=== PATIENT | male | born 1965 | race Caucasian/White ===

== ENCOUNTER → 2016-12-07 | Outpatient (CLI) | payer BC ==
[~2016-12-07] MED LIST: AMLO1TAB20 PO; ASPI81TA44 PO; ATOR40TA59 PO; BYSTOLIC20 MG PO; CHOL20004 PO; FISH1CAP PO; MULT-245 PO; PHEN37.5 PO; SAXA1TBM2 PO
--- NOTE | 2016-12-07 16:52 | KCIC ---
PROCEDURE Lumbar spine MRI without contrast. HISTORY Spinal stenosis. TECHNIQUE Multiplanar and multi sequence magnetic resonance imaging of the lumbar spine was performed without contrast. COMPARISON None. FINDINGS There is grade 1 anterolisthesis of L3 on L4, measuring 3 mm. There is degenerative endplate remodeling with disc desiccation predominately at L4-L5 and L5-S1. No suspicious osseous lesion is seen. There are few small hemangiomas. There is congenital shortening the pedicles resulting in narrowing of the central canal at all lumbar levels. This superimposed on epidural lipomatosis, resulting in effacement of the thecal sac. This is described in detail below. At L1-L2, there is congenital narrowing of the central canal and epidural lipomatosis. There is mild facet arthropathy. There is mild narrowing of the thecal sac. At L2-L3, there is a disc bulge and endplate remodeling. There is congenital narrowing of the central canal and epidural lipomatosis. There is mild facet arthropathy. There is mild to moderate narrowing of the thecal sac. At L3-L4, there is a disc bulge and endplate remodeling. There is congenital narrowing of the central canal and epidural lipomatosis. There is moderate to severe facet arthropathy. There is hypertrophy of the ligamentum flavum. There is grade 1 anterolisthesis. There is moderate to severe narrowing of the thecal sac. At L4-L5, there is a broad-based posterior central disc protrusion superimposed on a disc bulge and endplate osteophytosis. There is congenital narrowing of the central canal and epidural lipomatosis. There is moderate facet arthropathy. There is moderate narrowing of the thecal sac. At L5-S1, there is a broad-based left paracentral to extra foraminal disc protrusion with slight superior foraminal extrusion superimposed on a disc bulge and endplate osteophytosis. There is mild facet arthropathy. There is mild right and moderate left foraminal stenosis with abutment of the exiting left greater than right L5 nerve roots. There is effacement of the left lateral recess and deviation of the traversing left S1 nerve root without significant central canal stenosis. IMPRESSION 1. Multilevel degenerative change throughout the lumbar spine, described in detail above. The combination of degenerative changes and congenital narrowing of the central canal and epidural lipomatosis results in significant narrowing of the thecal sac and foraminal stenosis at the aforementioned levels. 2. Grade 1 anterolisthesis of L3 on L4. Electronically signed by: Mary Ross (Dec 07, 2016 16:50:56)
== END | disposition home or self-care (01) ==
LOC: KCIC MRI 15:56
PROVIDERS: ATTEND Family Medicine
DX: M47.896 Other spondylosis, lumbar region (principal); E88.2 Lipomatosis, not elsewhere classified
CPT/HCPCS: 72148

== ENCOUNTER → 2017-03-24 | Outpatient (CLI) | payer BC ==
[~2017-03-24] MED LIST changes: -CHOL20004 PO; +CHOL200074 PO
--- NOTE | 2017-03-24 14:52 | KCIC ---
EXAM: Lumbar spine, flexion and extension. HISTORY: Pain. COMPARISON: MRI dated 12/07/2016. FINDINGS: Flexion and extension views of the lumbar spine are obtained. There is grade 1 anterolisthesis of L3 on L4 which measures 3 mm during extension and 4 mm with flexion. No additional listhesis is seen. No fracture is seen. There is degenerative endplate remodeling with anterior predominant osteophytosis at the thoracic and lumbar levels. There is facet arthropathy predominantly at the lower lumbar levels. IMPRESSION: 1. Multilevel degenerative change throughout the lumbar spine, predominantly at the lower lumbar levels. 2. Grade 1 anterolisthesis of L3 on L4 which minimally changes between flexion and extension. Electronically signed by: Mary Ross MD (03/24/2017 2:50 PM) [facility]-KC[facility]
== END | disposition home or self-care (01) ==
LOC: KCIC 14:18
PROVIDERS: ATTEND Neurological Surgery
DX: M43.16 Spondylolisthesis, lumbar region (principal); M48.06 Spinal stenosis, lumbar region
CPT/HCPCS: 72100

== ENCOUNTER → 2017-04-10 | Outpatient (CLI) | payer BC ==
[~2017-04-10] MED LIST changes: +CANA300T PO; +CLON0.2T PO; +GABA-586 PO; +HYDR-2762 PO; +LIRA0.6P2 SQ; +METF-620 PO
[2017-04-10 15:50] LABS: BASO # 0.1 x10^3/uL (0.0-0.2); BASO % 1 % (0-3); EOS % 3 % (0-3); HEMATOCRIT 41.9 % (39.0-53.0); LYMPH # 1.9 x10^3/uL (1.0-4.8); LYMPH % 27 % (24-48); MEAN CORPUSCULAR HEMOGLOBIN 30 pg (25-35); MEAN CORPUSCULAR HGB CONC 33 g/dL (31-37); MEAN CORPUSCULAR VOLUME 91 fL (79-100); MONO % 10 % (0-9); NEUT % 59 % (31-73); PLATELET COUNT 231 x10^3/uL (140-400); RED BLOOD COUNT 4.62 x10^6/uL (4.30-5.70); RED CELL DISTRIBUTION WIDTH 13.6 % (11.5-14.5); WHITE BLOOD COUNT 7.1 x10^3/uL (4.0-11.0)
--- NOTE | 2017-04-10 15:51 | EKG ---
[facility] [address] [place] [address] Test Date: 2017-04-10 Test Time: 15:49:32 Pat Name: NASIMA SHELDON Department: Room: Gender: M Brick Sorter: VERONICA : 1965 Requested By: PAIGE BEATTY Order Number: [id number] Reading MD: Lawrence Durand Measurements Intervals [place] Rate: 74 P: 159 ID: 144 QRS: 166 QRSD: 96 T: 158 QT: 378 QTc: 425 Interpretive Statements SINUS RHYTHM LIMB LEAD MISPLACEMENT Electronically Signed On 04-11-2017 7:09:52 CDT by Lawrence Durand
== END | disposition home or self-care (01) ==
LOC: SURGPAT 13:52
PROVIDERS: ATTEND Neurological Surgery
DX: I10 Essential (primary) hypertension (principal); M54.16 Radiculopathy, lumbar region
CPT/HCPCS: 36415; 85025; 85730; 87641; 93005

== ENCOUNTER 2017-04-19 07:00 | Observation (INO) | payer BC ==
[~2017-04-19] VITALS: Ht 190.5 cm; Wt 172.4 kg
[2017-04-19] VITALS (9 sets, daily range): BP systolic 97–140; BP diastolic 46–91
[~2017-04-19 07:00] MED LIST changes: +BACITRACIN 50,000 UNIT in IV NORMAL SALINE 1000ML BAG 1,000 ML IRR ONE; +BUPIVACAINE MPF 0.5% 30 ML VIAL. ONE; +GELATIN SPONGE SIZE 100. ONE; +HYDROmorphone 2 MG/ML VIAL IV PRN; +IV RINGERS,LACTATED 1000ML 1,000 ML IV SCH; +LIDOCAINE 1% 1 ML SYRINGE. ID PRN; +LIDOCAINE 1%/EPI 1:100,000 20 ML VIAL. ONE; +MORPHINE SULFATE 2 MG/ML DISP.SYRIN. IV PRN; +ONDANSETRON PF 4 MG/2 ML VIAL. IV PRN; +PROCHLORPERAZINE 10 MG/2 ML VIAL. IV PRN; +THROMBIN TOPICAL 20,000 UNIT SPRAY.SYRN KIT TP ONE; +fentaNYL PF VIAL 100 MCG/2 ML VIAL IV PRN
[2017-04-19] MEDS ORDERED: MINERAL OIL/PETROLATUM,WHITE OPHTH OINT 3.5GM TUBE. ONE (08:08)
[2017-04-19] MEDS ORDERED: DEXAMETHASONE SOD PHOS 20 MG/5 ML VIAL. ONE (08:08)
[2017-04-19] MEDS ORDERED: REMIFENTANIL 2 MG VIAL. IV ONE (08:08)
[2017-04-19] MEDS ORDERED: ONDANSETRON PF 4 MG/2 ML VIAL. ONE (08:08)
[2017-04-19] MEDS ORDERED: SUCCINYLCHOLINE 200 MG/10 ML VIAL. ONE (08:08)
[2017-04-19] MEDS ORDERED: fentaNYL PF VIAL 100 MCG/2 ML VIAL ONE (08:08)
[2017-04-19] MEDS ORDERED: PROPOFOL 20 ML IV ONE (08:08)
[2017-04-19] MEDS ORDERED: PROPOFOL 50 ML IV ONE ×2 (08:08→10:26)
[2017-04-19] MEDS ORDERED: DESFLURANE > 120 MINUTES IH ONE (08:08)
[2017-04-19] MEDS ORDERED: LIDOCAINE 2% PF Vial for OR 5 ML VIAL. ONE (08:08)
[2017-04-19] MEDS ORDERED: 0.9 % SODIUM CHLORIDE 50 ML VIAL. IJ ONE (08:08)
[2017-04-19] MEDS ORDERED: MIDAZOLAM HCL/PF 2 MG/2 ML VIAL. ONE (08:08)
[2017-04-19] MEDS ORDERED: PHENYLEPHRINE in 0.9% NACL PF 1 MG/10 ML DISP.SYRIN. IV ONE (10:26)
[2017-04-19] MEDS ORDERED: ePHEDrine PF IN SALINE 50 MG/5 ML DISP.SYRIN IV ONE (10:39)
[2017-04-19] MEDS ORDERED: PHENYLEPHRINE 10 MG/ML VIAL. ONE (10:51)
[2017-04-19] MEDS ORDERED: REMIFENTANIL 1 MG VIAL. IV ONE (12:17)
--- NOTE | 2017-04-19 13:26 | PDOC ---
BRIEF OPERATIVE NOTE Date: Apr 19, 2017 Pre-Op Diagnosis lumbar stenosis, lumbar radiculopathy Post-Op Diagnosis same Procedure Performed bilateral laminectomy L3-4 and L4-5 Surgeon Linda Software Recruiter none Anesthesia Type: General Blood Loss 100mL Specimens Obtained decompression Findings prominent stenosis L3-4 and L4-5, neuromonitoring potentials remained at least baseline with some possible reported improvement at the completion of the procedure Complications none apparent PAIGE BEATTY MD Apr 19, 2017 13:26
[2017-04-19] MEDS ORDERED: diphenhydrAMINE 50 MG/ML VIAL IV PRN (13:30)
[2017-04-19] MEDS ORDERED: NALOXONE 0.4 MG/ML VIAL. IV PRN (13:30)
[2017-04-19] MEDS ORDERED: MAG HYDROX/ALUMINUM HYD/SIMETH 30 ML ORAL.SUSP PO PRN (13:30)
[2017-04-19] MEDS ORDERED: ACETAMINOPHEN 325 MG TABLET. PO PRN (13:30)
[2017-04-19] MEDS ORDERED: CALCIUM CARBONATE 500 MG TAB.CHEW PO PRN (13:30)
[2017-04-19] MEDS ORDERED: MAGNESIUM HYDROXIDE 2,400 MG/30 ML ORAL.SUSP. PO PRN (13:30)
[2017-04-19] MEDS ORDERED: ZOLPIDEM 5 MG TABLET. PO PRN (13:30)
[2017-04-19] MEDS ORDERED: oxyCODONE/APAP 5/325 1 TAB TABLET PO PRN (13:30)
[2017-04-19] MEDS ORDERED: 0.9 % SODIUM CHLORIDE 10 ML DISP.SYRIN. IV PRN (13:30)
[2017-04-19] MEDS ORDERED: diphenhydrAMINE HCL 25 MG CAPSULE PO PRN (13:30)
[2017-04-19] MEDS ORDERED: ONDANSETRON PF 4 MG/2 ML VIAL. IV PRN (13:30)
[2017-04-19] MEDS: fentaNYL PF VIAL 100 MCG/2 ML VIAL IV PRN ×3 (13:41→14:00)
[2017-04-19] MEDS ORDERED: fentaNYL PF VIAL 100 MCG/2 ML VIAL IV PRN ×2 (13:45)
[2017-04-19] MEDS: MORPHINE SULFATE 2 MG/ML DISP.SYRIN. IV PRN ×2 (13:55→14:06)
[2017-04-19] MEDS ORDERED: MORPHINE SULFATE 4 MG/ML DISP.SYRIN. IV PRN (14:00)
--- NOTE | 2017-04-19 14:12 | OP ---
DATE OF SURGERY: 04/19/2017 SURGEON: Samuel Beatty MD WELLNESS ASSISTANT: None. PREOPERATIVE DIAGNOSES: Lumbar stenosis, lumbar radiculopathy with epidural lipomatosis, and lumbar spondylosis. POSTOPERATIVE DIAGNOSES: Lumbar stenosis, lumbar radiculopathy with epidural lipomatosis, and lumbar spondylosis. PROCEDURE: Bilateral laminectomy at lumbar 3-4 and lumbar 4-5 with intraoperative use of neuromonitoring and intraoperative use of microscope. ANESTHESIA: General. COMPLICATIONS: None intra-procedurally. INDICATIONS FOR THE PROCEDURE: The patient is a 52-year-old gentleman with bilateral lower extremity pain with prominent stenosis due to degenerative changes as well as epidural lipomatosis predominantly at lumbar 3-4 and lumbar 4-5. He has been refractory to multiple nonsurgical treatments. Please refer to the patient's chart for additional details. DESCRIPTION OF PROCEDURE: After informed consent was obtained, the patient was brought into the operating room. He was placed under general anesthesia. He was placed in prone position on the Ricky frame. All pressure points were checked and padded appropriately. The lumbar region was prepped and draped in the usual sterile fashion. Fluoroscopy was utilized to localize an appropriate incision location and a vertical incision centered over the region of lumbar 3, 4, and 5 was made with a 10 blade scalpel. Monopolar electrocautery was utilized to dissect the avascular midline to the spinous processes of lumbar 3, 4 and 5 and bilaterally across the lamina at this location. Level was verified with fluoroscopy prior to the initiation of decompressions. Bilateral laminectomies were performed from the superior aspect of lumbar 5, through the entirety of lumbar 4 and the inferior aspect of lumbar 3 bilaterally across the regions of the most significant stenosis which were in the regions of disk spaces. Laminectomy was performed with a Leksell as well as a pneumatic drill and a Kerrison rongeur. The bone was gently removed with Kerrison rongeur from the underlying ligament and the ligament was subsequently gently removed from thecal sac with a Chicot and a Kerrison rongeur. Significant lipomatosis was noted predominantly at the more inferior aspect of the laminectomy and degenerative changes were significantly more prominent factor in the more cephalad region of stenosis. Significant hypertrophied ligament was removed from lateral recesses at these locations with a Kerrison rongeur as well. Upon completion of decompression, the neural elements were noted to be very well decompressed. This was verified with direct visualization as well as gentle palpation with a Chicot and a Crane ball probe. It was also noted that neuromonitoring potentials were at least baseline with some possible reported improvement after the decompression. Upon completion of the laminectomy/decompression, attention was turned to closure. Pristine hemostasis was achieved with FloSeal, cottonoids and some use of bipolar electrocautery. Wound was generously irrigated with antibiotic irrigation prior to final closure. The muscles and fascia were then reapproximated with 0 Vicryl in a simple interrupted fashion. The subcutaneous tissues were reapproximated with 2-0 Vicryl in an interrupted inverted fashion, and the skin was reapproximated with 4-0 Vicryl in a running ____ recovery in stable condition. There were no intra-procedural complications apparent. SAMUEL BEATTY MD DR: NUPUR/kasia JOB#: [id number] / [id number]
[2017-04-19] MEDS: amLODIPine BESYLATE 10 MG TABLET PO SCH (15:00)
[2017-04-19] MEDS: LOSARTAN POTASSIUM 50 MG TABLET. PO SCH (15:00)
[2017-04-19] MEDS: hydroCHLOROthiazide 25 MG TABLET PO SCH (15:00)
[2017-04-19] MEDS: CALCIUM CARB/VIT D3 500/200 TABLET. PO SCH (16:37)
[2017-04-19] MEDS: GABAPENTIN 300 MG CAPSULE. PO SCH ×2 (16:37→21:14)
[2017-04-19] MEDS: FERROUS SULFATE 325 MG TABLET. PO SCH (16:38)
[2017-04-19] MEDS: METHOCARBAMOL 750 MG TABLET PO SCH ×2 (16:38→21:14)
[2017-04-19] MEDS: METOPROLOL TART IMMED RELEASE 50 MG TABLET. PO SCH (21:00)
[2017-04-19] MEDS: SENNOSIDES/DOCUSATE 8.6/50MG TABLET. PO SCH (21:00)
[2017-04-19] MEDS ORDERED: ATORVASTATIN CALCIUM 40 MG TABLET. PO SCH (21:00)
[2017-04-19] MEDS: DOCUSATE SODIUM 100 MG CAPSULE. PO SCH (21:14)
[2017-04-19] MEDS: cloNIDine HCL 0.2 MG TABLET PO SCH (23:22)
[2017-04-19] MEDS: oxyCODONE/APAP 5/325 1 TAB TABLET PO PRN (23:23)
[2017-04-20 03:25] VITALS: BP 117/73
[2017-04-20] MEDS: oxyCODONE/APAP 5/325 1 TAB TABLET PO PRN ×2 (05:17→09:10)
[2017-04-20 06:30] VITALS: BP 118/72
[2017-04-20] MEDS: FERROUS SULFATE 325 MG TABLET. PO SCH (07:58)
[2017-04-20] MEDS: CALCIUM CARB/VIT D3 500/200 TABLET. PO SCH (07:58)
[2017-04-20] MEDS ORDERED: NON FORMULARY ITEM (Canagliflozin (Invokana) 300 MG) PO SCH (08:00)
[2017-04-20] MEDS: DOCUSATE SODIUM 100 MG CAPSULE. PO SCH (08:47)
[2017-04-20] MEDS: hydroCHLOROthiazide 25 MG TABLET PO SCH (08:47)
[2017-04-20] MEDS: cloNIDine HCL 0.2 MG TABLET PO SCH (08:47)
[2017-04-20] MEDS: LOSARTAN POTASSIUM 50 MG TABLET. PO SCH (08:47)
[2017-04-20 08:48] VITALS: BP 118/72
[2017-04-20] MEDS: SENNOSIDES/DOCUSATE 8.6/50MG TABLET. PO SCH (08:48)
[2017-04-20] MEDS: METOPROLOL TART IMMED RELEASE 50 MG TABLET. PO SCH (08:48)
[2017-04-20] MEDS: GABAPENTIN 300 MG CAPSULE. PO SCH (08:48)
[2017-04-20] MEDS: amLODIPine BESYLATE 10 MG TABLET PO SCH (08:48)
[2017-04-20] MEDS: METHOCARBAMOL 750 MG TABLET PO SCH (08:48)
[2017-04-20] MEDS ORDERED: NON FORMULARY ITEM (Liraglutide (Victoza 3-Pak) 1.8 MG) SQ SCH (09:00)
[2017-04-20] MEDS ORDERED: NON FORMULARY ITEM (Phentermine Hcl 1 TAB) PO SCH (09:00)
[2017-04-20] MEDS ORDERED: MULTIVITAMIN with MINERAL TABLET. PO SCH (09:00)
[2017-04-20] MEDS ORDERED: SENN-37 PO (09:17)
[2017-04-20] MEDS ORDERED: OXYC-323 PO (09:17)
[2017-04-20] MEDS ORDERED: METH-38 PO (09:18)
--- NOTE | 2017-04-20 11:17 | PDOC ---
SUBJECTIVE Subjective Late entry. Pt seen and examined 0830 on 04/20/17. Denies acute complaints. Some incisional pain controlled with present regimen. Reports improvement of pre-operative leg symptoms. Has ambulated without significant problem. OBJECTIVE Vital Signs Vital Signs Date Time Temp Pulse Resp B/P (MAP) Pulse Ox O2 Delivery O2 Flow Rate FiO2 04/20/17 09:10 Room Air 04/20/17 08:48 74 118/72 04/20/17 08:48 74 118/72 04/20/17 08:47 74 118/72 04/20/17 08:47 74 118/72 04/20/17 06:30 98.2 74 20 118/72 (87) 100 Room Air 98.2 04/20/17 06:20 20 Room Air 04/20/17 05:17 20 Room Air 04/20/17 03:25 97.9 77 20 117/73 (88) 97 Room Air 97.9 04/19/17 23:29 98.2 87 20 140/80 (100) 98 Room Air 98.2 04/19/17 23:23 20 04/19/17 23:22 87 140/80 04/19/17 21:53 88 124/74 (91) 04/19/17 17:55 98.8 91 18 97/46 (63) 96 98.8 04/19/17 17:00 91 128/91 (103) Room Air 04/19/17 16:00 91 130/76 (94) Room Air 04/19/17 15:15 89 135/70 (91) 04/19/17 15:12 Room Air 04/19/17 15:10 90 117/84 (95) 95 Room Air 04/19/17 15:00 93 126/70 (88) 95 04/19/17 14:45 97.7 90 114/66 (82) 92 Room Air 97.7 04/19/17 14:22 98.3 91 20 138/79 95 Room Air 98.3 04/19/17 14:07 89 18 129/82 94 Room Air 04/19/17 14:06 20 95 Room Air 04/19/17 14:00 20 98 Room Air 04/19/17 13:55 20 95 Room Air 04/19/17 13:52 90 18 120/79 96 Room Air 04/19/17 13:41 20 100 Simple Mask 10.0 9/6/17 13:37 80 20 114/70 99 Simple Mask 10.0 04/19/17 13:35 20 100 Simple Mask 10.0 04/19/17 13:22 99.3 93 18 148/77 98 Simple Mask 10 99.3 04/19/17 13:22 Mask 10 PHYSICAL EXAM Physical Exam AAOx4, NAD, HSU 5/5, sensation intact LT, incision with minimal sanguinous drainage at inferior aspect, flat and dry otherwise ASSESSMENT/PLAN Assessment/Plan POD 1 lumbar laminectomy -appears to be recovering well thus far -PT evaluation pending -anticipate d/c home today Problems: COMMENT Lab Laboratory Tests Test 04/19/17 13:39 Glucose (Fingerstick) 132 mg/dL (70-99) PAIGE BEATTY MD Apr 20, 2017 11:17
--- NOTE | 2017-04-22 00:02 | PATHOLOGY ---
PATHOLOGY REPORT * * * * * * * * FINAL DIAGNOSIS: "Lumbar decompression", removal: - Fragments of fibrocartilage with degenerative changes. - Fragments of unremarkable bone. (SKM/db; 04/21/2017) REPORT ELECTRONICALLY SIGNED BY: Christine Watson M.D. DATE/TIME: 04/21/2017 15:24 * * * * * * * * GROSS PATHOLOGY: Received in formalin labeled "Bartolo Childers Jr., lumbar decompression," are several pieces of glistening, fibrous tissue admixed with pink-springer soft tissue and fragments of pale springer bone measuring 9.3 x 7.1 x 1.9 cm in aggregate dimension. The tissue is submitted representatively in cassette A1. (DAC; 04/20/2017) INITIAL CPT CODE(S): A; 27258 Professional services performed [place] [facility] [place] [address] Technical services performed by [facility] at [address] [place] [address], [facility] [address], [place] [address]. SPECIMEN(S) RECEIVED: A.Lumbar decompression CLINICAL HISTORY: Back pain, bilateral leg numbness PATIENT: BARTOLO CHILDERS JR /AGE: 8 1965 (Age: 52) PATIENT #: [id number] ALT CASE #: SPECIMEN COLLECTION DATE: 04/19/2017 SPECIMEN RECEIVED DATE: 04/19/2017 [facility] - [address] [place] [address] - PHONE: [phone] * * * END OF REPORT * * *
== END 2017-04-20 10:13 | disposition home or self-care (01) ==
LOC: SURG 07:00 → 4 SOUTHEST 13:50
PROVIDERS: ADMIT Neurological Surgery; ATTEND Neurological Surgery
DX: M48.06 Spinal stenosis, lumbar region (principal); M47.26 Other spondylosis with radiculopathy, lumbar region; E88.2 Lipomatosis, not elsewhere classified
CPT/HCPCS: 63047; 63048; 76000; 82962; 97162; 97165; 97530; G0378; G0379; G8978; G8979; G8980; G8987; G8988; G8989; J0330; J0690; J1100; J2250; J2270; J2370; J2704; J3010; J3490; J7030; J7120; 88304; J1170; J2405; J2001

== ENCOUNTER → 2019-01-21 | Outpatient (CLI) | payer BC ==
[~2019-01-21] MED LIST changes: +AMLO-292 PO; +AMLO1TAB15 PO; -AMLO1TAB20 PO; -ASPI81TA44 PO; +ASPI81TA59 PO; -BACITRACIN 50,000 UNIT in IV NORMAL SALINE 1000ML BAG 1,000 ML IRR ONE; -BUPIVACAINE MPF 0.5% 30 ML VIAL. ONE; +EXEN5PEN2 SQ; -GABA-586 PO; +GABA300C18 PO; -GELATIN SPONGE SIZE 100. ONE; -HYDR-2762 PO; +HYDR-2765 PO; -HYDROmorphone 2 MG/ML VIAL IV PRN; +IOHEXOL 180 MG/ML 10 ML VIAL. ONE; -IV RINGERS,LACTATED 1000ML 1,000 ML IV SCH; -LIDOCAINE 1% 1 ML SYRINGE. ID PRN; -LIDOCAINE 1%/EPI 1:100,000 20 ML VIAL. ONE; -METF-620 PO; +METF10007 PO; +METH-38 PO; -MORPHINE SULFATE 2 MG/ML DISP.SYRIN. IV PRN; -ONDANSETRON PF 4 MG/2 ML VIAL. IV PRN; +OXYC1TAB15 PO; -PROCHLORPERAZINE 10 MG/2 ML VIAL. IV PRN; +SENN-37 PO; -THROMBIN TOPICAL 20,000 UNIT SPRAY.SYRN KIT TP ONE; -fentaNYL PF VIAL 100 MCG/2 ML VIAL IV PRN; +methylPREDNISolone ACETATE 40 MG/ML VIAL. ONE; +methylPREDNISolone ACETATE 80 MG/ML VIAL. ONE
--- NOTE | 2019-01-21 23:02 | PAIN ---
DATE OF SERVICE: 01/21/2019 INITIAL CONSULTATION FOR PAIN CLINIC CHIEF COMPLAINT: Low back and left lower extremity pain. HISTORY OF PRESENT ILLNESS: This is a 53-year-old male who presents with history of pain in low back, left lower extremity for about a year and much worse over the past 2 months as the patient twisted and he was picking up a geography department chair cooking device and picked it up and twisted at the same time, has some significant pain in the low back and since that time, it is moved into his left hip, posterior gluteus, posterior lateral thigh, posterior calf and lateral calf and thigh on the left side into the foot. The patient reports it has been sharp in the back but now is more dull and radiating into the leg. The patient reports it is stabbing, shooting, throbbing, tingling with numbness in the left foot. No symptoms on the right side. The patient reports it is worse with walking, standing, changing positions, better with sitting or lying down but awakens him from sleep at least 6 times at night as he is unable to get comfortable on the right or left side or lying on his back or stomach. The patient reports it does not affect his bowel or bladder control but does affect his ability to walk as he is fatigued easily after about 5-10 minutes with his left leg. With walking, he feels like he is walking over a mile. The patient reports his right leg is to remain strong. No assistive devices used to ambulate. The patient reports he has had physical therapy, chiropractic treatment in the past, exercise in the past as well, most recently ongoing current care trainer and 2018 physical therapy. The patient is taking oxycodone as well, which does help to about 50%. The patient did have an MRI scan of the lumbar spine dated 11/23/2018 showing paraspinal musculature demonstrated postoperative changes, levels at L3, L4 and L5 with laminectomy changes at L4-L5, soft tissue changes with laminectomy noted and mild right paracentral disk osteophyte complex at L1-L2 as well as significant narrowing at the L5-S1 level as well. The patient rates his disability rate from 0-10, 10 being the worst, is a 10 in all categories, family and home responsibility recreation, social activity, occupation, self-care and sexual behavior and life support activities. PAST MEDICAL HISTORY: Significant for arthritis, hypertension and diabetes. PAST SURGICAL HISTORY: Previous surgeries include lumbar laminectomy in 2018, right hip fracture in 2007, hip surgeries x 3 and right knee scope in 2016. CURRENT MEDICATIONS: Include phentermine, Bystolic, clonidine, Invokana, Percocet, amlodipine, Byetta, multivitamins and daily baby aspirin. FAMILY HISTORY: Significant for no major medical problems or conditions he is aware of. SOCIAL HISTORY: The patient drinks alcohol about 6-12 alcoholic drinks a week, does not smoke but does chew chewing tobacco and does not use any illegal, illicit or recreational drugs. He is and lives with his spouse, lives locally in [place], [place] and works for the [employer]. REVIEW OF SYSTEMS: The patient's review of systems is positive for those items mentioned in history of present illness. All systems reviewed and otherwise negative. It is complete, full and well documented on the patient's chart. PHYSICAL EXAMINATION: GENERAL: The patient's blood pressure is 133/90, pulse is 76, respirations 18 and temperature is 98.2 degrees Fahrenheit. Height is 6 feet 2 inches and weight 396 pounds. GENERAL: The patient is awake, alert, oriented, appropriate and very pleasant demeanor. HEENT: Head is normocephalic and atraumatic. Extraocular movements are intact and symmetrical. Oral cavity: Mucous membranes moist and pink. Dentition is intact. NECK: Shows anterior throat supple without palpable lymphadenopathy noted. Swallow reflex is symmetrical. CHEST: Shows normal with inspection. Breath sounds clear to auscultation bilaterally. HEART: Shows S1 and S2 clear. No murmurs auscultated. ABDOMEN: Soft, nontender and nondistended. Obese but without organomegaly. No rebound or guarding demonstrated. BACK: The patient's back shows spine grossly in the midline. Slight exaggeration of the thoracic kyphosis and some minor flattening of lumbar lordotic curvature with well-healed surgical scar in the lumbar distribution. Lumbar paraspinous muscle shows symmetrical on inspection and on palpation shows some moderate tenderness diffusely throughout the upper, middle and lower distribution of the paraspinous muscles but only diffusely without significant radiation, atrophy or hypertrophy. The patient shows good range of motion of the lumbar spine, both laterally as well as extension and flexion, greater than 10 degrees right and left as well as extension greater than 10 degrees, forward flexion 45 degrees without significant pain reported. EXTREMITIES: The patient's lower extremities show deep tendon reflexes at 2+ in the patellar, 1+ tendo-calcaneus tendons are equal. Motor exam is strong with 5/5 dorsiflexion, extension, quadriceps and hamstring flexion, slightly more strong on the right than the left with 4/5 quadriceps and hamstring on the left side secondary to pain. Straight leg raise noted to be positive on the left at about 45 degrees and right side is negative. It is relieved with knee flexion on the left side. Gaenslen's and Bebeto's maneuvers are negative for reproduction of pain bilaterally. The patient is able to stand, stand on his toes without difficulty or loss of balance, walks with normal appearing gait for short distance in the office today, not using any assistive devices to ambulate as canes or walkers. The patient's skin shows warm and dry, good turgor. No edema. No sores, rashes or bruising. IMPRESSION: 1. This is a 53-year-old male with approximately 2-month history of pain in the low back, left lower extremity in a radicular fashion. 2. MRI scan of the lumbar spine as noted. 3. Previous lumbar laminectomy. 4. Arthritis. 5. Diabetes. 6. Hypertension. PLAN: Options were discussed with the patient including conservative physical therapy and interventional technique. He would like to pursue interventional techniques. We discussed a lumbar epidural steroid injection using description as well as anatomical models to describe the procedure. Risks including, but not limited to bleeding, infection, possibility of epidural hematoma, subsequent neurologic compromise, dural puncture, headaches, spinal cord and/or nerve damage, side effects of steroid medication and poor results regarding pain control. The patient understands and wished to proceed. The patient will return to the clinic in approximately 2 weeks for followup, was counseled as to return appointment, activity level and side effects to be aware of. DIAGNOSES: Lumbar radiculopathy with lumbar degenerative disk disease, post-lumbar laminectomy syndrome. PROCEDURE: Lumbar epidural steroid injection, translaminar approach, L5-S1 level using C-arm fluoroscopic guidance under sterile prep and drape using local anesthetic. MEDICATION INJECTED: A total of 120 mg Depo-Medrol plus 10 mL of preservative-free normal saline and 2 mL of Isovue for contrast. CONDITION AT DISCHARGE: Stable. The patient tolerated the procedure well and had no complications. KENAN HAIDER MD DR: SHILPA/kasia JOB#: [id number] / [id number]
== END ==
LOC: PNCL 09:48
PROVIDERS: ATTEND Anesthesiology
DX: M51.16 Intervertebral disc disorders with radiculopathy, lumbar region (principal); M96.1 Postlaminectomy syndrome, not elsewhere classified; I10 Essential (primary) hypertension; E11.9 Type 2 diabetes mellitus without complications; Z79.82 Long term (current) use of aspirin; Z98.890 Other specified postprocedural states; Z79.84 Long term (current) use of oral hypoglycemic drugs; Z72.89 Other problems related to lifestyle; Z72.0 Tobacco use
CPT/HCPCS: 62323; J1030; J1040; Q9965

== ENCOUNTER → 2019-02-04 | Outpatient (CLI) | payer BC ==
--- NOTE | 2019-02-04 10:18 | PAIN ---
DATE OF SERVICE: 02/04/2019 DIAGNOSES: Lumbar radiculopathy with lumbar degenerative disk disease and post-lumbar laminectomy syndrome. HISTORY OF PRESENT ILLNESS: The patient is a 53-year-old male who returns for followup status post lumbar epidural steroid injection x 1. The patient reports about 25% improvement, especially in the leg on the left side. The patient reports he is walking greater distances, doing work activities also to much greater ease and comfort. The patient reports he is sleeping well at night, does not awaken him from sleep, sleeps about 8 hours at a time. The patient reports his pain is in the low back, radiating to posterior gluteus, posterior thigh, posterior calf and to the ankle with some tingling and sharp pain, is aching and dull in the back, worse with walking, standing, changing positions, much better than it was. The patient reports his pain in the last week is a 10 on scale of 10 at its worst, 7 on average, 5 at its least and is a 7 today. The patient reports no new motor or sensory deficits, no new bowel or bladder incontinence or other complaints. PHYSICAL EXAMINATION: VITAL SIGNS: The patient's blood pressure is 172/101, pulse 76, respirations 18, temperature 97.4 degrees Fahrenheit, height 6 feet 3 inches, weighs 396 pounds. GENERAL: The patient is awake, alert, oriented, appropriate, very pleasant demeanor. HEENT: Head shows normocephalic, atraumatic. Extraocular movements are intact and symmetrical. Oral cavity: Mucous membranes moist and pink. Dentition is intact. NECK: Shows anterior throat supple without palpable lymphadenopathy noted. Swallow reflex symmetrical. CHEST: Shows normal with inspection. Breath sounds clear to auscultation bilaterally. HEART: Shows S1, S2 clear. No murmurs auscultated. ABDOMEN: Soft, nontender, nondistended. No palpable organomegaly is noted. No rebound or guarding demonstrated. BACK: Shows spine grossly in the midline. Normal appearing thoracic kyphosis and lumbar lordotic curvature. Lumbar paraspinous muscle shows symmetrical on inspection, with palpation shows some moderate tenderness diffusely in the low lumbar distribution without radiation. The patient has good rotational motion of lumbar spine, both laterally as well as extension and flexion without difficulty. EXTREMITIES: Lower extremities show deep tendon reflexes 2+ in the patellar, 1+ tendo-calcaneus tendons. Motor exam is 5/5 and equal, and symmetrical bilaterally. Peripheral pulses 1+ posterior tibia. No peripheral edema is noted bilaterally. Options were discussed with the patient. The patient's old chart was reviewed as his current medication regimen updated. Current review of systems updated today as well. We will proceed with a second in the series of lumbar epidural steroid injection today with fluoroscopic guidance. Risks were again discussed including, but not limited to bleeding, infection, possibility of epidural hematoma, subsequent neurological compromise, dural puncture, headaches, spinal cord and/or nerve damage, side effects of steroid medication and poor results regarding pain control. The patient understands and wished to proceed. The patient will return to clinic in approximately 2 weeks for followup, was counseled on return appointment, activity level and side effects to be aware of. DIAGNOSES: Lumbar radiculopathy with lumbar degenerative disk disease, post-lumbar laminectomy syndrome. PROCEDURE: Lumbar epidural steroid injection, translaminar approach at L5-S1 level using C-arm fluoroscopic guidance under sterile prep and drape using local anesthetic. MEDICATION INJECTED: A total of 120 mg Depo-Medrol, plus 10 mL of preservative-free normal saline and 2 mL of Isovue for contrast. CONDITION AT DISCHARGE: Stable. The patient tolerated procedure well, had no complications. KENAN HAIDER MD DR: SHILPA/kasia JOB#: [id number] / [id number]
== END ==
LOC: PNCL 08:17
PROVIDERS: ATTEND Anesthesiology
DX: M51.16 Intervertebral disc disorders with radiculopathy, lumbar region (principal); M96.1 Postlaminectomy syndrome, not elsewhere classified; M54.5 Low back pain
CPT/HCPCS: 62323; J1030; J1040; Q9965

== ENCOUNTER → 2019-02-22 | Day surgery (SDC) | payer BC ==
[~2019-02-22] MED LIST changes: -IOHEXOL 180 MG/ML 10 ML VIAL. ONE; +IV RINGERS,LACTATED 1000ML 1,000 ML IV SCH; +LIDOCAINE 1% PF 2 ML VIAL. ID PRN; +LIDOCAINE 2% PF 5 ML VIAL. ONE; +MIDAZOLAM HCL/PF 2 MG/2 ML VIAL. IV PRN; +PROPOFOL 40 ML IV ONE; +fentaNYL PF VIAL 100 MCG/2 ML VIAL IV PRN; -methylPREDNISolone ACETATE 40 MG/ML VIAL. ONE; -methylPREDNISolone ACETATE 80 MG/ML VIAL. ONE
[2019-02-22 08:00] VITALS: BP 152/89
== END ==
LOC: ENDOS 05:58
PROVIDERS: ATTEND Internal Medicine Gastroenterology
DX: Z12.11 Encounter for screening for malignant neoplasm of colon (principal); K64.0 First degree hemorrhoids; K63.89 Other specified diseases of intestine; J45.909 Unspecified asthma, uncomplicated; E11.9 Type 2 diabetes mellitus without complications; I10 Essential (primary) hypertension; Z87.39 Personal history of other diseases of the musculoskeletal system and connective tissue; Z72.89 Other problems related to lifestyle; Z72.0 Tobacco use; Z98.890 Other specified postprocedural states; Z79.84 Long term (current) use of oral hypoglycemic drugs
CPT/HCPCS: 45378; 82962; J2001; J2704